=== PATIENT | female | born 1940 | race Hispanic/Latino ===

== ENCOUNTER 2018-08-22 07:49 | Day surgery (SDC) | payer MEDICARE ==
[~2018-08-22] VITALS: Ht 149.9 cm; Wt 66.2 kg
[2018-08-22] VITALS (7 sets, daily range): BP systolic 83–127; BP diastolic 34–56
[~2018-08-22 07:49] MED LIST: ADV250 IH; ALBU8.5H8 IH; ATOR20TA65 PO; HYDR-3830 PO; LEVO88TA7 PO; LOSARTAN; MONT10TA24 PO; OMEP40CA37 PO; SODIUM CHLORIDE 0.9% 1000ML 1,000 ML IV ONE
[2018-08-22] MEDS ORDERED: PROPOFOL 10 MG/ML 20ML VIAL IV ONE ×2 (09:37→09:38)
== END 2018-08-22 10:17 | disposition home or self-care (01) ==
LOC: DAH 07:49 → ENDO 07:49
PROVIDERS: ATTEND Internal Medicine
DX: K31.811 Angiodysplasia of stomach and duodenum with bleeding (principal); K44.9 Diaphragmatic hernia without obstruction or gangrene; J45.909 Unspecified asthma, uncomplicated; I10 Essential (primary) hypertension; E78.5 Hyperlipidemia, unspecified; D64.9 Anemia, unspecified; K21.9 Gastro-esophageal reflux disease without esophagitis; D50.9 Iron deficiency anemia, unspecified; E03.9 Hypothyroidism, unspecified; Z88.0 Allergy status to penicillin; Z88.5 Allergy status to narcotic agent; Z90.710 Acquired absence of both cervix and uterus; Z86.010 Personal history of colon polyps
CPT/HCPCS: 44366; 93005; A4606; J2704 ×2; J7030

== ENCOUNTER 2018-09-12 08:19 | Day surgery (SDC) | payer MEDICARE ==
[~2018-09-12] VITALS: Ht 149.9 cm; Wt 63.5 kg
[2018-09-12] VITALS (11 sets, daily range): BP systolic 100–149; BP diastolic 35–63
[2018-09-12] MEDS ORDERED: LOSA25TA41 PO (08:41)
[2018-09-12] MEDS ORDERED: PROPOFOL 10 MG/ML 20ML VIAL IV ONE (08:54)
--- NOTE | 2018-09-12 09:54 | NUR ---
PATIENT RETURNED BACK ON HER WAY OUT DUE TO EPIGASTRIC PAIN. CALLED DAVID ANDRE CRNA, ORDERS OBTAINED FOR CHEST PAIN . BOTH PATIENT AND DAUGHTER EXPLAINED THAT DUE TO CAUTERIZATION PATIENT IS HAVING CHEST DISCOMFORT. NS RHYTHM.
[2018-09-12] MEDS ORDERED: LIDOCAINE HCL 2% VISCOUS 15 ML UDCUP ONE (09:57)
[2018-09-12] MEDS ORDERED: SUCRALFATE 1 GM TABLET PO SCH (10:00)
--- NOTE | 2018-09-12 10:00 | NUR ---
PT TOOK HER DOSE OF CARAFATE ORDERED BY DR. PATRICK FROM HER HOME SUPPLY
[2018-09-12] MEDS ORDERED: MEPERIDINE-PF 25 MG/ML SYG ONE (10:17)
--- NOTE | 2018-09-12 10:25 | NUR ---
PT STILL COMPLAINING OF CHEST AND EPIGASTRIC PAIN. CALLED DAVID ANDRE CRNA AND STATED TO GO AHEAD AND DO GIVE DEMEROL 12.5MG IV NOW. 22 G TO LEFT AC STARTED.
--- NOTE | 2018-09-12 10:43 | NUR ---
PTAAOX3 IN NO DISTRESS , STATES FEELING BETTER. BOTH PT AND DAUGHTER REMINDED ON COMPLYING WITH CARAFATE DOSAGE AND TIME PER DR. PATRICK ORDERED TO TAKE AT HOME, BOTH VERBALIZED UNDERSTANDING AND AGREED TO COMPLY.
--- NOTE | 2018-09-12 10:51 | NUR ---
PT STATES FEELING BETTER, PT AAOX3 IN NO DISTRESS. PT LEFT WITH WHEELCHAIR IN NO DISTRESS.
--- NOTE | 2018-09-12 14:41 | NUR ---
WAISTED DEMEROL 12.5MG ON ANOTHER WHEN IT WAS ACTUALLY FOR THIS PT , NOTIFIED SAPNA SABA FROM PHARMACY, PER SAPNA TO DOCUMENT ON PT CHART OF WAIST DONE ON ANOTHER PT
== END 2018-09-12 10:53 | disposition home or self-care (01) ==
LOC: ENDO 08:19 → DAH 08:19 → ENDO 09:41
PROVIDERS: ATTEND Internal Medicine
DX: K44.9 Diaphragmatic hernia without obstruction or gangrene (principal); D50.9 Iron deficiency anemia, unspecified; R19.5 Other fecal abnormalities; I10 Essential (primary) hypertension; E03.9 Hypothyroidism, unspecified; K21.9 Gastro-esophageal reflux disease without esophagitis; J45.909 Unspecified asthma, uncomplicated; Z90.710 Acquired absence of both cervix and uterus; Z98.890 Other specified postprocedural states; Z79.899 Other long term (current) drug therapy
CPT/HCPCS: 43255; A4606; J2175; J2704; J7030; 43250

== ENCOUNTER 2018-10-19 05:38 | Emergency (ER) | payer MEDICARE ==
[~2018-10-19 05:38] MED LIST changes: +LOSA25TA41 PO; -LOSARTAN; -SODIUM CHLORIDE 0.9% 1000ML 1,000 ML IV ONE
[2018-10-19] MEDS ORDERED: LACTULOSE 20 GM/30 ML UDCUP ONE (06:22)
== END 2018-10-19 07:38 | disposition home or self-care (01) ==
LOC: EDH 05:38
DX: K59.00 Constipation, unspecified (principal); I10 Essential (primary) hypertension; J45.909 Unspecified asthma, uncomplicated; K21.9 Gastro-esophageal reflux disease without esophagitis; E03.9 Hypothyroidism, unspecified; Z90.710 Acquired absence of both cervix and uterus; Z88.1 Allergy status to other antibiotic agents; Z88.5 Allergy status to narcotic agent

== ENCOUNTER 2018-12-03 13:51 | Emergency (ER) | payer MEDICARE | END 2018-12-03 14:52 | disposition home or self-care (01) | LOC: EDH 13:51 | DX: K59.00 Constipation, unspecified (principal); R10.30 Lower abdominal pain, unspecified; K21.9 Gastro-esophageal reflux disease without esophagitis; I10 Essential (primary) hypertension; E03.9 Hypothyroidism, unspecified; J45.909 Unspecified asthma, uncomplicated; Z88.1 Allergy status to other antibiotic agents; Z88.6 Allergy status to analgesic agent; Z90.710 Acquired absence of both cervix and uterus | CPT/HCPCS: 99281 ==

== ENCOUNTER → 2019-04-10 | Outpatient (CLI) | payer MEDICARE, OTHER ==
[~2019-04-10] MED LIST changes: +OMEP40CA13 PO; -OMEP40CA37 PO
== END | disposition home or self-care (01) ==
LOC: OIH 13:35
PROVIDERS: ATTEND Internal Medicine Cardiovascular Disease
DX: Z13.6 Encounter for screening for cardiovascular disorders (principal)
CPT/HCPCS: 75571

== ENCOUNTER 2019-04-27 07:33 | Day surgery (SDC) | payer MEDICARE ==
[~2019-04-27] VITALS: Ht 149.9 cm; Wt 65.8 kg
[~2019-04-27 07:33] MED LIST changes: -ALBU8.5H8 IH; -MONT10TA24 PO; +MONT10TA26 PO; +SODIUM CHLORIDE 0.9% 1000ML 1,000 ML IV ONE; +VITAD50000 PO
[2019-04-27 08:59] VITALS: BP 145/60
[2019-04-27] MEDS ORDERED: PROPOFOL 10 MG/ML 20ML VIAL IV ONE ×2 (09:42)
[2019-04-27] MEDS ORDERED: LIDOCAINE HCL 2% 20ML ONE (10:02)
[2019-04-27 10:17] VITALS: BP 108/58
[2019-04-27 10:22] VITALS: BP 103/52
[2019-04-27 10:27] VITALS: BP 116/65
[2019-04-27 10:32] VITALS: BP 124/61
== END 2019-04-27 10:55 | disposition home or self-care (01) ==
LOC: ENDO 07:33 → DAH 07:33 → ENDO 10:55
PROVIDERS: ATTEND Internal Medicine Gastroenterology
DX: D50.9 Iron deficiency anemia, unspecified (principal); K29.80 Duodenitis without bleeding; K31.811 Angiodysplasia of stomach and duodenum with bleeding; K44.9 Diaphragmatic hernia without obstruction or gangrene; I10 Essential (primary) hypertension; E03.9 Hypothyroidism, unspecified; K21.9 Gastro-esophageal reflux disease without esophagitis; J45.909 Unspecified asthma, uncomplicated; Z88.5 Allergy status to narcotic agent; Z88.1 Allergy status to other antibiotic agents; Z86.010 Personal history of colon polyps; Z79.899 Other long term (current) drug therapy; Z98.890 Other specified postprocedural states; Z90.710 Acquired absence of both cervix and uterus; Z80.0 Family history of malignant neoplasm of digestive organs; Z82.49 Family history of ischemic heart disease and other diseases of the circulatory system
CPT/HCPCS: 43239; 43255; 88305; A4215; A4221; A4222; A4223; A4606; A4620; A4663; J2704 ×2; J3490; J7030

== ENCOUNTER → 2019-05-11 | Outpatient (CLI) | payer MEDICARE ==
[~2019-05-11] MED LIST changes: -SODIUM CHLORIDE 0.9% 1000ML 1,000 ML IV ONE
== END | disposition home or self-care (01) ==
LOC: SHCH 09:11
PROVIDERS: ATTEND Internal Medicine Cardiovascular Disease
DX: R60.9 Edema, unspecified (principal)
CPT/HCPCS: 93971

== ENCOUNTER 2021-10-13 18:12 | Inpatient (IN) | payer MEDICARE ==
[~2021-10-13] VITALS: Ht 152.4 cm; Wt 59.0 kg
[~2021-10-13 18:12] MED LIST changes: +ASCO100031 PO; +CLIN300C3 PO; +ERGO2000 PO; +FERR325T22 PO; +HYDR-4457 PO; +MONT-39 PO; -MONT10TA26 PO; -OMEP40CA13 PO; +OMEP40CA21 PO; -VITAD50000 PO
[2021-10-13 18:54] LABS: BASOPHILS % (AUTO) 0.8 % (0.0-5.0); CREATININE 0.7 mg/dL (0.5-1.5); EOSINOPHILS % (AUTO) 5.3 % (0.0-8.0); HEMATOCRIT 25.4 % (36-48); MEAN CORPUSCULAR HEMOGLOBIN 23.3 pg (27.0-33.0); MEAN CORPUSCULAR HGB CONC 27.6 g/dL (32.0-36.0); MEAN CORPUSCULAR VOLUME 84.7 fL (79-99); MONOCYTES % (AUTO) 9.8 % (3.0-13.0); NEUTROPHILS % (AUTO) 56.6 % (40.0-77.0); PLATELET COUNT (AUTO) 301 K/uL (130-400); POTASSIUM 3.6 mmol/L (3.5-5.1); RED CELL DISTRIBUTION WIDTH 17.5 % (11.0-15.5); WHITE BLOOD COUNT (AUTO) 6.4 K/uL (4.8-10.8)
[2021-10-13 18:59] LABS: ALBUMIN 3.3 g/dL (3.5-5.0); TOTAL PROTEIN, SERUM 6.7 g/dL (6.0-8.3)
[2021-10-13] MEDS ORDERED: FLUT1DIS3 IH (21:28)
[2021-10-13] MEDS ORDERED: FERR-82 PO (21:28)
[2021-10-13] MEDS ORDERED: CYAN50009 PO (21:28)
[2021-10-13] MEDS ORDERED: OCTREOTIDE ACETATE 500 MCG in 0.9%NACL 100ML 97.5 ML IV SCH (21:30)
[2021-10-13] MEDS ORDERED: OCTREOTIDE ACETATE 100 MCG/ML AMP IV SCH (21:30)
[2021-10-13] MEDS ORDERED: ONDANSETRON 4MG INJ IV PRN (21:30)
[2021-10-13] MEDS ORDERED: PANTOPRAZOLE 40 MG/VIAL IVP ONE (21:30)
[2021-10-13] MEDS: 0.9%NACL 1000ML 1,000 ML IV SCH (22:08)
[2021-10-13 23:38] LABS: HEMATOCRIT 23.2 % (36-48)
[2021-10-14] MEDS ORDERED: ALBUTEROL INHALER 90MCG/INH IH PRN
[2021-10-14 05:41] LABS: BASOPHILS % (AUTO) 0.8 % (0.0-5.0); EOSINOPHILS % (AUTO) 6.2 % (0.0-8.0); HEMATOCRIT 27.9 % (36-48); LYMPHOCYTES % (AUTO) 24.3 % (21.0-51.0); MEAN CORPUSCULAR HEMOGLOBIN 24.6 pg (27.0-33.0); MEAN CORPUSCULAR VOLUME 84.8 fL (79-99); MONOCYTES % (AUTO) 10.3 % (3.0-13.0); PLATELET COUNT (AUTO) 240 K/uL (130-400); RED BLOOD CELL COUNT(AUTO) 3.29 MIL/uL (4.00-5.50); RED CELL DISTRIBUTION WIDTH 16.4 % (11.0-15.5)
[2021-10-14 05:52] LABS: INR 1.02 (0.85-1.15); PROTHROMBIN TIME 11.1 SEC (9.6-11.6)
[2021-10-14 05:53] LABS: PARTIAL THROMBOPLASTIN TIME 25.1 SEC (26.3-35.5)
[2021-10-14 06:03] LABS: CREATININE 0.8 mg/dL (0.5-1.5); MAGNESIUM 1.9 mg/dL (1.80-2.40); PHOSPHORUS 3.8 mg/dL (2.5-4.9); POTASSIUM 4.1 mmol/L (3.5-5.1); THYROID STIMULATING HORMONE 0.15 uIU/mL (0.36-3.74)
[2021-10-14 07:43] LABS: APPEARANCE,URINE CLEAR (CLEAR); BILIRUBIN,URINE NEGATIVE (NEGATIVE); COLOR,URINE YELLOW (YELLOW); GLUCOSE, URINE (UA) NEGATIVE (NEGATIVE); KETONES,URINE NEGATIVE (NEGATIVE); LEUKOCYTE ESTERASE ,URINE NEGATIVE (NEGATIVE); NITRATE,URINE NEGATIVE (NEGATIVE); OCCULT BLOOD,URINE NEGATIVE (NEGATIVE); PH,URINE 5.5 (5.0-8.0); PROTEIN,URINE NEGATIVE (NEGATIVE); UROBILINOGEN,URINE 0.2 mg/dL (0.2-1.0)
[2021-10-14] MEDS ORDERED: PANTOPRAZOLE 40MG INJ 80 MG in 0.9%NACL 100ML 100 ML IV SCH (09:00)
[2021-10-14 14:24] VITALS: BP 147/56
[2021-10-14] MEDS: 0.9%NACL 1000ML 1,000 ML IV SCH (15:18)
[2021-10-14] MEDS ORDERED: PEG 3350/NA SULF,BICARB,CL/KCL 4000 ML SOLN PO ONE (16:00)
== END 2021-10-14 17:40 | disposition left against medical advice (07) | DRG 378 ==
LOC: EDH 18:12 → EDHIP 21:20
PROVIDERS: ADMIT Internal Medicine; ATTEND Internal Medicine
PROC: 30233N1 Transfusion of Nonautologous Red Blood Cells into Peripheral Vein, Percutaneous Approach (ICD-10-PCS; principal; 2021-10-14)
DX: K92.2 Gastrointestinal hemorrhage, unspecified (principal); D62 Acute posthemorrhagic anemia; Z20.822 Contact with and (suspected) exposure to COVID-19; E03.9 Hypothyroidism, unspecified; I10 Essential (primary) hypertension; I25.10 Atherosclerotic heart disease of native coronary artery without angina pectoris; Z88.1 Allergy status to other antibiotic agents; J45.909 Unspecified asthma, uncomplicated; Z53.29 Procedure and treatment not carried out because of patient's decision for other reasons
CPT/HCPCS: 36415; 80048; 80053; 81003; 82270; 83735; 84100; 84443; 85014; 85018; 85025; 85610; 85730; 86850; 86900; 86901; 86923; 87635; 93005; C9113; G0378; J2354; J7030; P9016